=== PATIENT | male | born 1985 | race Caucasian/White ===

== ENCOUNTER 2021-04-12 02:53 | Emergency (ER) | payer OTHER ==
[2021-04-12 03:07] VITALS: BP 126/81; PULSE 60; RESP 18; TEMP 97.9
--- NOTE | 2021-04-12 03:30 | ED ---
URI HPI - General Chief Complaint: Upper Respiratory Infection Stated Complaint: Chest Pain Time Seen by Provider: 04/12/21 03:11 Source: patient Mode of arrival: ambulatory Limitations: no limitations - History of Present Illness MD Complaint: cough, nasal congestion Onset/Timin -: days(s) Severity: moderate Improves With: nothing Worsens With: nothing Associated Symptoms: rhinorrhea, nasal congestion, cough - Related Data Previous Rx's Medication Instructions Recorded Azithromycin [Zithromax Z-pack (6 250 mg PO DIRECTED #6 tab 04/12/21 tabs)] Allergies Allergy/AdvReac Type Severity Reaction Status Date / Time No Known Allergies Allergy Verified 04/12/21 03:07 Review of Systems ROS Statement: Those systems with pertinent positive or pertinent negative responses have been documented in the HPI. ROS Other: All systems not noted in ROS Statement are negative. Constitutional: Reports: fever, chills ENT: Reports: congestion. Denies: throat pain Respiratory: Reports: cough. Denies: dyspnea, wheezes Cardiovascular: Denies: chest pain, palpitations Gastrointestinal: Denies: abdominal pain, vomiting, diarrhea Genitourinary: Denies: dysuria, hematuria Musculoskeletal: Denies: back pain Skin: Denies: rash Neurological: Denies: headache, weakness, numbness Past Medical History Past Medical History: No Reported History History of Any Multi-Drug Resistant Organisms: None Reported Past Surgical History: Tonsillectomy Past Psychological History: No Psychological Hx Reported Smoking Status: Current every day smoker Past Alcohol Use History: None Reported Past Drug Use History: None Reported General Exam Limitations: no limitations General appearance: alert, in no apparent distress Head exam: Present: atraumatic, normocephalic Eye exam: Present: normal appearance, conjunctival injection. Absent: scleral icterus ENT exam: Present: normal oropharynx Neck exam: Present: normal inspection Respiratory exam: Present: normal lung sounds bilaterally. Absent: respiratory distress, wheezes, rales, rhonchi, stridor Cardiovascular Exam: Present: regular rate, normal rhythm, normal heart sounds. Absent: systolic murmur, diastolic murmur, rubs, gallop GI/Abdominal exam: Present: soft. Absent: distended, tenderness, guarding, rebound, rigid, mass Extremities exam: Present: normal inspection, normal capillary refill. Absent: pedal edema, calf tenderness Back exam: Present: normal inspection. Absent: CVA tenderness (R), CVA tenderness (L) Neurological exam: Present: alert Skin exam: Present: warm, dry, intact, normal color. Absent: rash Course Vital Signs 04/12/21 03:05 Temperature 97.9 F Pulse Rate 60 Respiratory 18 Rate Blood Pressure 126/81 O2 Sat by Pulse 97 Oximetry Medical Decision Making - Lab Data Lab Results 04/12/21 Range/Units 04:05 Coronavirus (PCR) Not Detected (Not Detectd) - EKG Data EKG shows normal: sinus rhythm, intervals (Normal), QRS complexes (Left anterior fascicular block), ST-T waves (Normal) Rate: bradycardia (Rate 51 bpm) Disposition Clinical Impression: Bronchitis Disposition: HOME SELF-CARE Condition: Good Instructions (If sedation given, give patient instructions): Acute Bronchitis (ED) Prescriptions: Azithromycin [Zithromax Z-pack (6 tabs)] 250 mg PO DIRECTED #6 tab Is patient prescribed a controlled substance at d/c from ED?: No Referrals: None,Stated [Primary Care Provider] - 1-2 days
[2021-04-12] MEDS ORDERED: ALBUTEROL NEBULIZED 2.5 MG/3 ML INHALATION STA (03:49)
[2021-04-12] MEDS ORDERED: ALBUTEROL HFA INHALER INHALATION STA (04:13)
--- NOTE | 2021-04-12 05:26 | XR ---
EXAM: XR Chest, 2 Views CLINICAL HISTORY: ITS.REASON XR Reason: cough TECHNIQUE: Frontal and lateral views of the chest. COMPARISON: None FINDINGS: Hardware: None. Lungs/pleura: Normal. No focal consolidation. No pleural effusion or pneumothorax. Heart/mediastinum: Normal. No cardiomegaly. Soft tissues: Unremarkable. Bones: No acute fracture. Upper abdomen: Normal. IMPRESSION: No acute disease identified.
== END 2021-04-12 07:00 | disposition home or self-care (01) ==
LOC: EC 02:53
DX: J40 Bronchitis, not specified as acute or chronic (principal); F17.200 Nicotine dependence, unspecified, uncomplicated; Z20.822 Contact with and (suspected) exposure to COVID-19
CPT/HCPCS: 71046; 87635; 93005; 94640; 99285

== ENCOUNTER 2022-10-26 15:07 | Emergency (ER) | payer OTHER ==
[2022-10-26 16:30] VITALS: BP 110/57; PULSE 79; RESP 20; TEMP 99.1
--- NOTE | 2022-10-26 18:07 | XR ---
EXAMINATION TYPE: XR chest 2V DATE OF EXAM: 10/26/2022 COMPARISON: 04/12/2021 HISTORY: Cough TECHNIQUE: 2 view FINDINGS: Heart is normal. Lungs are clear. Diaphragm is normal. Bony thorax is normal. IMPRESSION: Normal chest. No change.
[2022-10-26] MEDS ORDERED: ONDANSETRON ODT 4 MG TAB PO STA (19:30)
[2022-10-26] MEDS ORDERED: ACETAMINOPHEN TAB 500 MG TAB PO STA (19:31)
[2022-10-26] MEDS ORDERED: IBUPROFEN 400 MG TAB PO STA (19:31)
--- NOTE | 2022-10-26 19:33 | ED ---
URI HPI - General Chief Complaint: Upper Respiratory Infection Stated Complaint: MELI,Dizziness Time Seen by Provider: 10/26/22 19:25 Source: patient, RN notes reviewed Mode of arrival: ambulatory Limitations: no limitations - History of Present Illness Initial Comments: This is a pleasant 37-year-old male presents per his prior complaining of cough, fever, body aches, runny nose for 2 days. Cough is dry. no changes in vision or hearing, no sore throat or difficulty with speech, no neck pain, no chest pain or shortness of breath, no abdominal pain, no nausea or vomiting, no changes in urination or bowel movements, no numbness or tingling, no extremity pain, no skin rashes or lesions. Past medical, surgical, social, and family history reviewed. MD Complaint: fever, cough, rhinorrhea, nasal congestion - Related Data Previous Rx's Medication Instructions Recorded Azithromycin [Zithromax Z-pack (6 250 mg PO DIRECTED #6 tab 04/12/21 tabs)] Oseltamivir [Tamiflu] 75 mg PO Q12HR #10 cap 10/26/22 Allergies Allergy/AdvReac Type Severity Reaction Status Date / Time No Known Allergies Allergy Verified 10/26/22 16:30 Review of Systems ROS Statement: Those systems with pertinent positive or pertinent negative responses have been documented in the HPI. ROS Other: All systems not noted in ROS Statement are negative. Past Medical History Past Medical History: No Reported History History of Any Multi-Drug Resistant Organisms: None Reported Past Surgical History: Tonsillectomy Past Psychological History: No Psychological Hx Reported Smoking Status: Current every day smoker Past Alcohol Use History: None Reported Past Drug Use History: None Reported General Exam - General Exam Comments Initial Comments: Patient in mild distress. Appears to be L but not toxic. Capillary refill less than 2 seconds. No mottling Limitations: no limitations General appearance: alert, in no apparent distress Head exam: Present: atraumatic, normocephalic, normal inspection Eye exam: Present: normal appearance, PERRL, EOMI. Absent: scleral icterus, conjunctival injection, periorbital swelling ENT exam: Present: normal exam, normal oropharynx, mucous membranes moist, TM's normal bilaterally, normal external ear exam, other (Clear runny nose). Absent: mucous membranes dry Neck exam: Present: normal inspection, full ROM. Absent: tenderness, menin gismus, lymphadenopathy Respiratory exam: Present: normal lung sounds bilaterally. Absent: respiratory distress, wheezes, rales, rhonchi, stridor Cardiovascular Exam: Present: regular rate, normal rhythm, normal heart sounds. Absent: systolic murmur, diastolic murmur, rubs, gallop, clicks GI/Abdominal exam: Present: soft, normal bowel sounds. Absent: distended, tenderness, guarding, rebound, rigid Extremities exam: Present: normal inspection, full ROM, normal capillary refill. Absent: tenderness, pedal edema, joint swelling, calf tenderness Back exam: Present: normal inspection Neurological exam: Present: alert, oriented X3, CN II-XII intact Psychiatric exam: Present: normal affect, normal mood Skin exam: Present: warm, dry, intact, normal color. Absent: rash Course Vital Signs 10/26/22 16:28 Temperature 99.1 F Pulse Rate 79 Respiratory 20 Rate Blood Pressure 110/57 O2 Sat by Pulse 98 Oximetry Medical Decision Making - Medical Decision Making Patient positive for influenza a as he was tested in triage. Patient in no significant distress. Patient is complaining of body aches, chills. However vital signs stable, patient is afebrile. Chest x-ray interpreted by me reveals no acute pathology. No infiltrate. No pneumothorax. No effusion. No cardiomegaly. Radiographic report reviewed Patient and spouse counseled on disease course and etiology. We'll use Tamiflu as he patient is within 48 hours. Antipyretic therapy discussed. Patient was told to return to the ER for any signs or symptoms worsen. Told to return immediately if any other problems arise. All questions answered. Treatment plan discussed. Patient in agreement Every effort has been made to ensure accuracy of this dictation. However, due to the limitations of electronic medical records and dictation devices, errors in charting still occur. Carl or Dr. Leblanc - Lab Data Lab Results 10/26/22 Range/Units 16:32 Influenza Type A (PCR) Detected A (Not Detectd) Influenza Type B (PCR) Not Detected (Not Detectd) RSV (PCR) Not Detected (Not Detectd) SARS-CoV-2 (PCR) Not Detected (Not Detectd) Disposition Clinical Impression: Influenza A Disposition: HOME SELF-CARE Condition: Stable Instructions (If sedation given, give patient instructions): Influenza (ED) Additional Instructions: Use acetaminophen and ibuprofen as directed on the [id number] bottle for fever control. This illness will likely last one week. Follow-up with your regular physician as directed. Return to the ER immediately if any symptoms worsen, new symptoms arise, or any other problems develop. Prescriptions: Oseltamivir [Tamiflu] 75 mg PO Q12HR #10 cap Is patient prescribed a controlled substance at d/c from ED?: No Referrals: None,Stated [Primary Care Provider] - 1-2 days Time of Disposition: 19:32
== END 2022-10-26 20:00 | disposition home or self-care (01) ==
LOC: EC 15:07
DX: J10.1 Influenza due to other identified influenza virus with other respiratory manifestations (principal); F17.200 Nicotine dependence, unspecified, uncomplicated; Z20.822 Contact with and (suspected) exposure to COVID-19
CPT/HCPCS: 71046; 87636; 99284

== ENCOUNTER 2022-11-25 10:44 | Emergency (ER) | payer OTHER ==
[2022-11-25 10:50] VITALS: BP 106/64; PULSE 92; RESP 20; TEMP 98.4
[2022-11-25] MEDS ORDERED: TOPICAL SKIN ADHESIVE 1 EACH AMP TOPICAL ONE (11:42)
[2022-11-25] MEDS ORDERED: BACITRACIN OINT 1 EACH PACKET TOPICAL ONE (11:43)
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
--- NOTE | 2022-11-25 12:25 | XR ---
EXAMINATION TYPE: XR tibia fibula LT, XR knee complete LT DATE OF EXAM: 11/25/2022 12:14 PM INDICATION: Patient age:Male; 37 years old; Reason for study: pain; COMPARISON: None TECHNIQUE: The left tibia/fibula was examined in AP and lateral projections. Left knee was examined in frontal lateral and oblique views. FINDINGS: No evidence of any acute osseous pathology, joint dislocation, or soft tissue swelling is n oted. IMPRESSION: No evidence of acute fracture.
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
[2022-11-25] MEDS ORDERED: OXYMETAZOLINE 0.05% NASL SPRAY 1 SPRAY BOTTLE NASAL STA (13:19)
== END 2022-11-25 13:55 | disposition home or self-care (01) ==
LOC: EC 10:44
DX: S02.2XXA Fracture of nasal bones, initial encounter for closed fracture (principal); S01.81XA Laceration without foreign body of other part of head, initial encounter; F12.90 Cannabis use, unspecified, uncomplicated; F17.200 Nicotine dependence, unspecified, uncomplicated; V89.2XXA Person injured in unspecified motor-vehicle accident, traffic, initial encounter; Y92.410 Unspecified street and highway as the place of occurrence of the external cause
CPT/HCPCS: 12002; 70486; 99284